=== PATIENT | female | born 1995 | race Hispanic/Latino ===

== ENCOUNTER 2024-12-29 10:43 | Inpatient (IN) | payer BC, SELFPAY ==
[2024-12-29 11:27] VITALS: BMI 44.4
[2024-12-29] MEDS ORDERED: Methylergonovine 0.2 MG/ML VIAL IM PRN ×2 (11:32→20:09)
[2024-12-29] MEDS ORDERED: Lidocaine 1% (PF) 30 ML VIAL SC PRN (11:32)
[2024-12-29] MEDS ORDERED: hydrALAZINE 20 MG/ML VIAL SLOW IVP PRN ×2 (11:32→20:09)
[2024-12-29] MEDS ORDERED: HYDROcodone/Acetaminophen 5/325 mg Tablet PO PRN ×3 (11:32→20:09)
[2024-12-29] MEDS ORDERED: Ondansetron PF 4 MG/2 ML Vial IVP PRN ×2 (11:32→20:09)
[2024-12-29] MEDS: Penicillin G Potassium 5 MILL.UNITS in Sodium Chloride 0.9% 100 ML IVPB SCH (11:47)
[2024-12-29] MEDS: Penicillin G Potassium 5 MILL.UNITS VIAL ONE (11:47)
[2024-12-29 11:52] LABS: Hematocrit 37.1 % (34.9-44.5); Hemoglobin 11.3 g/dL (12.0-15.5); Mean Corpuscular Hemoglobin 23.3 pg (27.0-33.0); Mean Corpuscular Volume 76.5 fL (81.6-98.3); Platelet Count 293 10x3/uL (150-450); Red Blood Cell (RBC) Count 4.85 10x6/uL (3.90-5.03); White Blood Cell (WBC) Count 9.31 10x3/uL (3.5-10.5)
[2024-12-29 12:19] LABS: Hep B Surf Ag - L&D Non-Reactive S/CO (NonReactive)
[2024-12-29 12:21] LABS: Syphilis Antibody Index 0.04 S/CO (<1.00 Non-Reactive)
[2024-12-29] MEDS: Oxytocin 30 units/NS 500 ML 500 ML IV SCH (15:27)
[2024-12-29] MEDS: Oxytocin 30 units/NS 500 ML 500 ML ONE (15:28)
[2024-12-29] MEDS: Ibuprofen 800 MG TAB PO PRN (15:34)
[2024-12-29] MEDS: Penicillin G 2.5 MILL.units 2.5 MILL.UNITS in Premix 1 BAG IVPB SCH (19:16)
[2024-12-29] MEDS: HYDROcodone/Acetaminophen 5/325 mg Tablet PO PRN (19:16)
[2024-12-29] MEDS: Lidocaine 1% (PF) 30 ML VIAL ONE (19:17)
[2024-12-29] MEDS ORDERED: Benzocaine-Menthol 82.5 ML CAN TOP PRN (20:09)
[2024-12-29] MEDS ORDERED: Bisacodyl 10 MG SUPP PR PRN (20:09)
[2024-12-29] MEDS ORDERED: Milk Of Magnesia 30 ML UDCUP PO PRN (20:09)
[2024-12-29] MEDS ORDERED: Oxytocin 30 units/NS 500 ML 500 ML IV SCH (20:15)
[2024-12-29] MEDS: Ferrous Sulfate 325 MG TAB PO SCH (22:59)
[2024-12-29] MEDS: Ibuprofen 800 MG TAB PO SCH (23:14)
[2024-12-30] MEDS: Ferrous Sulfate 325 MG TAB PO SCH (08:35)
[2024-12-31 09:08] VITALS: BP 125/66; TEMP 96.8
== END 2024-12-31 17:10 | disposition home or self-care (01) | DRG 807 ==
LOC: CSHLD/OP 10:43 → CSHLD 11:12 → CSHPP 19:39
PROVIDERS: ADMIT Obstetrics & Gynecology; ATTEND Obstetrics & Gynecology
PROC: 10E0XZZ Delivery of Products of Conception, External Approach (ICD-10-PCS; principal; 2024-12-29)
PROC: 4A1HXCZ Monitoring of Products of Conception, Cardiac Rate, External Approach (ICD-10-PCS; 2024-12-29)
DX: O99.214 Obesity complicating childbirth (principal); Z37.0 Single live birth; O99.824 Streptococcus B carrier state complicating childbirth; Z79.899 Other long term (current) drug therapy; Z3A.39 39 weeks gestation of pregnancy
CPT/HCPCS: 36415; 51701; 85027; 86780; 86850; 86900; 86901; 87340; 99285; J2540; J2590; J7120